=== PATIENT | female | born 2000 | race Caucasian/White ===

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

== ENCOUNTER 2021-01-23 23:38 | Emergency (ER) | payer OTHER ==
[~2021-01-23 23:38] MED LIST: IBUPROFEN800 MG PO
[2021-01-24 00:29] LABS: BASOPHIL 0.6 % (0-2); EOSINOPHIL 1.7 % (0-5); HCT 44.7 % (37.0-47.0); HGB 14.8 g/dl (12.5-16.0); LYMPHOCYTE 29.3 % (15-48); MCH 27.4 pg (25.0-31.0); MCHC 33.1 g/dL (32.0-36.0); MCV 82.6 fL (78.0-100.0); MONOCYTE 10.7 % (0-12); MPV 10.1 fL (6.0-9.5); NEUTROPHIL 57.3 % (41-80); NRBC 0; PLT 336 K/uL (150-400); RBC 5.41 M/uL (4.20-5.40); RDW 13.6 % (11.5-14.0); WBC 10.2 K/uL (4.0-10.5)
[2021-01-24 00:39] LABS: BILIRUBIN 1+ mg/dL (NEGATIVE); BLOOD TRACE-INTACT Ery/uL (NEGATIVE); COLOR YELLOW (YELLOW); GLUCOSE (U) NORMAL (NORMAL); LEUKOCYTES TRACE Leu/uL (NEGATIVE); NITRITE POSITIVE (NEGATIVE); PROTEIN TRACE (LOW) mg/dL (NEGATIVE); SPECIFIC GRAVITY >=1.030 (1.001-1.030)
[2021-01-24 00:43] LABS: AMPHETAMINES NEGATIVE (NEGATIVE); BARBITURATES NEGATIVE (NEGATIVE); ECSTASY (MDMA) NEGATIVE (NEGATIVE); MARIJUANA (THC) POSITIVE (NEGATIVE); METHADONE NEGATIVE (NEGATIVE); OPIATES NEGATIVE (NEGATIVE); OXYCODONE NEGATIVE (NEGATIVE)
[2021-01-24 00:45] LABS: CLARITY HAZY (CLEAR)
[2021-01-24 00:47] LABS: BACTERIA 4+
[2021-01-24 00:59] LABS: BUN/CREAT RATIO (CALC) 18.4 RATIO; CREATININE 0.76 mg/dL (0.51-0.95); POTASSIUM 3.6 mmol/L (3.5-5.1)
[2021-01-24] MEDS ORDERED: BACTRIM DS TAB1 EACH PO (01:27)
[2021-02-25] MEDS ORDERED: NAPROXEN500 MG PO (19:57)
[2021-02-25] MEDS ORDERED: ZOFRAN4 M1 PO (19:57)
[2021-02-25] MEDS ORDERED: BACTRIM DS TAB1 EACH PO (19:57)
== END 2021-01-24 01:35 | disposition home or self-care (01) ==
LOC: FER 23:38
PROVIDERS: Emergency Medicine
DX: F41.9 Anxiety disorder, unspecified (principal); N39.0 Urinary tract infection, site not specified; F17.200 Nicotine dependence, unspecified, uncomplicated
CPT/HCPCS: 36415; 80048; 80305; 81001; 85025; 87076; 87088; 87186; J0780; J7030